=== PATIENT | female | born 2005 | race Hispanic/Latino ===

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

== ENCOUNTER 2024-02-18 14:59 | Emergency (ER) | payer SELFPAY ==
[~2024-02-18] VITALS: Ht 160 cm; Wt 62.2 kg
[2024-02-18 15:24] VITALS: BP 122/75
[2024-02-18] MEDS ORDERED: METHOCARBAMOL 500 MG/TAB PO ONE (15:50)
[2024-02-18] MEDS ORDERED: NAPROXEN 250 MG/TAB PO ONE (15:50)
[2024-02-18 16:41] LABS: URINE BILIRUBIN - DIPSTICK Negative (NEGATIVE); URINE BLOOD DIPSTICK Negative (NEGATIVE); URINE COLOR Yellow; URINE GLUCOSE - DIPSTICK Negative (NEGATIVE); URINE KETONE Trace mg/dL (NEGATIVE); URINE LEUK ESTERASE Negative (NEGATIVE); URINE NITRITE - DIPSTICK Negative (Negative); URINE PH 8.5 (4.5-8.0); URINE PROTEIN - DIPSTICK Negative (NEG-TRACE); URINE UROBILINOGEN - DIPSTICK 0.2 E.U./dL (0.2)
[2024-02-18] MEDS ORDERED: METHOCARBAMOL500 MG PO (18:23)
[2024-02-18] MEDS ORDERED: NAPROXEN500 MG PO (18:23)
[2024-02-18 18:31] VITALS: BP 122/75
== END 2024-02-18 18:35 | disposition home or self-care (01) | DRG 552 ==
LOC: ED 14:59
PROVIDERS: Nurse Practitioner
DX: S16.1XXA Strain of muscle, fascia and tendon at neck level, initial encounter (principal); V49.40XA Driver injured in collision with unspecified motor vehicles in traffic accident, initial encounter